=== PATIENT | male | born 1985 | race Caucasian/White ===

== ENCOUNTER 2020-02-26 15:20 | Emergency (ER) | payer OTHER ==
[2020-02-26] MEDS ORDERED: Sodium Chloride 0.9% 10 ML Syringe FLUSH PRN (15:34)
[2020-02-26] MEDS: Sodium Chloride 0.9% 1,000 ML IV ONE (15:54)
--- NOTE | 2020-02-26 15:58 | EDM.PDOC ---
ED HPI GENERAL MEDICAL PROBLEM - General Chief Complaint: General Stated Complaint: Dehydration Time Seen by Provider: 02/26/20 15:26 Source of Information: Reports: Patient History Limitations: Reports: No Limitations - History of Present Illness INITIAL COMMENTS - FREE TEXT/NARRATIVE: Patient is a 35-year-old gentleman who presents to the emergency department via private vehicle with a complaint of suspected dehydration. Patient states that he [place] trail [place] approximately 2 miles this afternoon, became dizzy and weak and called 911. They were able to access his site, offered assistance, but he felt better and refused care. He was advised by EMT to present to the nearest emergency department. Patient states he feels much better now. Denies chest pain, shortness of breath, fever, suspected Covid exposure, nausea, vomiting, diarrhea, headache, muscle cramping, history of heat exhaustion, alcohol consumption, or any trauma. Onset: Today, Sudden Duration: Hour(s): Severity: Mild Improves with: Reports: Rest Worsens with: Reports: None Context: Reports: Activity Associated Symptoms: Reports: No Other Symptoms. Denies: Chest Pain, Fever/Chills, Nausea/Vomiting, Shortness of Breath - Related Data Allergies Allergy/AdvReac Type Severity Reaction Status Date / Time No Known Allergies Allergy Verified 02/26/20 15:58 Home Meds: Home Meds . [No Known Home Meds] 02/26/20 [History] ED ROS GENERAL - Review of Systems Review Of Systems: Comprehensive ROS is negative, except as noted in HPI. Constitutional: Reports: Weakness HEENT: Reports: No Symptoms Respiratory: Reports: No Symptoms Cardiovascular: Reports: No Symptoms Endocrine: Reports: No Symptoms GI/Abdominal: Reports: No Symptoms : Reports: No Symptoms Musculoskeletal: Reports: No Symptoms Skin: Reports: No Symptoms Neurological: Reports: Dizziness Psychiatric: Reports: No Symptoms Hematologic/Lymphatic: Reports: No Symptoms Immunologic: Reports: No Symptoms ED EXAM, GENERAL - Physical Exam Exam: See Below Exam Limited By: No Limitations General Appearance: Alert, WD/WN, No Apparent Distress Eye Exam: Bilateral Eye: Normal Inspection Nose: Normal Inspection, Normal Mucosa, No Blood Throat/Mouth: Normal Inspection, Normal Oropharynx, No Airway Compromise Head: Atraumatic, Normocephalic Neck: Normal Inspection, Supple Respiratory/Chest: No Respiratory Distress, Lungs Clear, Normal Breath Sounds, No Accessory Muscle Use, Chest Non-Tender Cardiovascular: Regular Rate, Rhythm, No Murmur GI/Abdominal: Normal Bowel Sounds, Soft, Non-Tender, No Organomegaly Back Exam: Normal Inspection. No: CVA Tenderness (L), CVA Tenderness (R) Extremities: Normal Inspection, No Pedal Edema Neurological: Alert, Oriented, Normal Cognition Psychiatric: Normal Affect, Normal Mood Skin Exam: Warm, Dry, Intact, Normal Color, No Rash Lymphatic: No Adenopathy Course - Vital Signs Last Recorded V/S: Last Vital Signs Temp 97.1 F 02/26/20 15:29 Pulse 101 H 02/26/20 15:29 Resp 20 02/26/20 15:29 BP 178/91 H 02/26/20 15: Pulse Ox 95 02/26/20 15:29 - Orders/Labs/Meds Orders: Active Orders 24 hr Category Date Time Status Peripheral IV Care [RC] . DIRECTED Care 02/26/20 15:34 Ordered Sodium Chloride 0.9% [Saline Flush] Med 02/26/20 15:34 Ordered 10 ml FLUSH Q8HR PRN Peripheral IV Insertion Adult [OM.PC] Routine Oth 02/26/20 15:34 Ordered Medication Orders Sodium Chloride (Saline Flush) 10 ml FLUSH Q8HR PRN PRN Reason: keep vein open Labs: Laboratory Tests 02/26/20 02/26/20 02/26/20 Range/Units 15:55 15:55 16:09 WBC 9.25 (5.00-10.00) 10^3/uL RBC 6.31 H (4.50-6.00) 10^6/uL Hgb 17.6 H (13.0-17.0) g/dL Hct 49.1 (40.0-52.0) % MCV 77.8 L (82.0-92.0) fL MCH 27.9 (27.0-31.0) pg MCHC 35.8 (32.0-36.0) g/dL RDW 12.9 (11.5-14.5) % Plt Count 272 (150-400) 10^3/uL MPV 8.9 (7.4-10.4) fL Immature Gran % (Auto) 0.2 (0.0-5.0) % Neut % (Auto) 70.5 H (50.0-70.0) % Lymph % (Auto) 22.2 (20.0-40.0) % [place] % (Auto) 5.0 (2.0-8.0) % Eos % (Auto) 1.5 (1.0-3.0) % Baso % (Auto) 0.6 (0.0-1.0) % Neut # (Auto) 6.52 (2.50-7.00) 10^3/uL Lymph # (Auto) 2.05 (1.00-4.00) 10^3/uL [place] # (Auto) 0.46 (0.10-0.80) 10^3/uL Eos # (Auto) 0.14 (0.10-0.30) 10^3/uL Baso # (Auto) 0.06 (0.00-0.10) 10^3/uL Immature Gran # (Auto) 0.02 (0.00-0.50) 10^3/uL Sodium 143 (136-145) mmol/L Potassium 3.3 (3.3-5.3) mmol/L Chloride 104 (98-115) mmol/L Carbon Dioxide 27.0 (21.0-32.0) mmol/L Anion Gap 15.3 H (5-15) mmol/L BUN 8 (6-25) mg/dL Creatinine 0.61 (0.51-1.17) mg/dL Est Cr Clr Drug Dosing 172.86 mL/min Estimated GFR (MDRD) > 60 mL/min Glucose 114 H (75 - 99) mg/dL Calcium 9.0 (8.7-10.3) mg/dL Total Bilirubin 1.1 H (0.2-1.0) mg/dL AST 67 H (15-37) U/L ALT 162 H (12-78) U/L Alkaline Phosphatase 75 (46-116) IU/L Creatine Kinase 213 (26-276) U/L Total Protein 8.1 (6.4-8.2) g/dL Albumin 4.25 (3.00-4.80) g/dL Specimen Type Urinvoid Urine Color Light yellow (YELLOW) Urine Appearance Clear (CLEAR) Urine pH 6.5 (5.0-9.0) Ur Specific [place] 1.015 (1.005-1.030) Urine Protein Negative (NEGATIVE) mg/dL Urine Glucose (UA) Negative (NEGATIVE) mg/dL Urine Ketones Negative (NEGATIVE) mg/dL Urine Occult Blood Negative (NEGATIVE) Urine Nitrite Negative (NEGATIVE) Urine Bilirubin Negative (NEGATIVE) Urine Urobilinogen 0.2 (0.2-1.0) E.U./dL Ur Leukocyte Esterase Negative (NEGATIVE) Meds: Medications Generic Name Dose Route Start Last Admin Trade Name Freq PRN Reason Stop Dose Admin Sodium Chloride 10 ml 02/26/20 15:34 Saline Flush FLUSH Q8HR PRN keep vein open Discontinued Medications Generic Name Dose Route Start Last Admin Trade Name Freq PRN Reason Stop Dose Admin Sodium Chloride 1,000 mls @ 999 mls/hr 02/26/20 15:34 02/26/20 15:54 Normal Saline IV 02/26/20 16:34 999 mls/hr .BOLUS ONE Administration - Re-Assessments/Exams Free Text/Narrative Re-Assessment/Exam: 02/26/20 16:46 Patient afebrile, vital signs stable, denies any muscle pain, feels much better. Patient will follow up PCP 02/26/20 16:46 Departure - Departure Time of Disposition: 16:46 Disposition: Home, Self-Care 01 Condition: Good Clinical Impression: Dehydration - Discharge Information Instructions: Dehydration, Adult, [id number], Rehydration, Adult Referrals: PCP,Unknown [Primary Care Provider] - Forms: ED Department Discharge Additional Instructions: Follow-up with PCP in next 2-3 days. Return to emergency department sooner if symptoms continue or worsen. Sepsis Event Note (ED) - Focused Exam Vital Signs: Vital Signs Temp Pulse Resp BP Pulse Ox 02/26/20 15:29 97.1 F 101 H 20 178/91 H 95 - My Orders Last 24 Hours: My Active Orders 02/26/20 15:34 Peripheral IV Care [RC] . DIRECTED Sodium Chloride 0.9% [Saline Flush] 10 ml FLUSH Q8HR PRN Peripheral IV Insertion Adult [OM.PC] Routine - Assessment/Plan Last 24 Hours: My Active Orders 02/26/20 15:34 Peripheral IV Care [RC] . DIRECTED Sodium Chloride 0.9% [Saline Flush] 10 ml FLUSH Q8HR PRN Peripheral IV Insertion Adult [OM.PC] Routine Assessment:: Dehydration Plan: Follow-up with PCP
[2020-02-26 16:25] LABS: ANION GAP 15.3 mmol/L (5-15); CHLORIDE,CL 104 mmol/L (98-115); SODIUM,NA 143 mmol/L (136-145)
== END 2020-02-26 17:20 | disposition home or self-care (01) ==
LOC: KA.ED 15:20
DX: E86.0 Dehydration (principal)
CPT/HCPCS: 80053; 81003; 82550; 85025; 96360; 99284; J7030; 99283